=== PATIENT | female | born 1960 | race Caucasian/White ===

== ENCOUNTER → 2022-02-05 | Outpatient (CLI) | payer MEDICARE | END | disposition home or self-care (01) | LOC: ORTHO 13:39 | PROVIDERS: ATTEND Orthopaedic Surgery | DX: M65.88 Other synovitis and tenosynovitis, other site (principal) | CPT/HCPCS: 20600; G0463 ==

== ENCOUNTER → 2022-11-26 | Outpatient (CLI) | payer MEDICARE, MEDICAID | LOC: ORTHO 09:29 | PROVIDERS: ATTEND Orthopaedic Surgery | DX: M65.4 Radial styloid tenosynovitis [de Quervain] (principal) | CPT/HCPCS: 20551 ==